=== PATIENT | male | born 1960 | race African-American/Black ===

== ENCOUNTER 2023-05-11 20:36 | Inpatient (IN) | payer OTHER ==
[2023-05-11] MEDS ORDERED: LACTATED RINGERS SOLUTION 1000 ML INFUS.BAG IV ONE (22:26)
[2023-05-11 23:11] LABS: CHLORIDE 107 mmol/L (98-107); POTASSIUM 4.1 mmol/L (3.5-5.1); SODIUM 142 mmol/L (136-145)
[2023-05-11 23:13] LABS: ANION GAP 10 MMOL/L (8-16); BLOOD UREA NITROGEN 14.5 mg/dL (7-18); CALCIUM 9.7 mg/dL (8.5-10.1); CO2 24 mmol/L (21-32); GLUCOSE,RANDOM 99 mg/dL (74-106)
[2023-05-11 23:16] LABS: CREATININE 1.6 mg/dL (0.55-1.3); SGOT/AST 43 U/L (15-37); SGPT/ALT 44 U/L (13-61)
[2023-05-11 23:18] LABS: TOT PROT 8.2 g/dl (6.4-8.2)
[2023-05-11 23:19] LABS: ALK PHOS 102 U/L (45-117)
[2023-05-12 01:33] LABS: BASO % 0.4 % (0-2.0); EOS % 0.6 % (0-4.5); HEMATOCRIT 41.6 % (35.4-49); HEMOGLOBIN 13.9 GM/dL (11.7-16.9); LYMPH % 18.1 % (8-40); MCHC 33.3 g/dl (32.0-35.9); MEAN PLT VOLUME 6.5 fl (7.5-11.1); MONO % 4.8 % (3.8-10.2); NEUT % 76.1 % (42.8-82.8); PLATELET COUNT 291 10^3/uL (134-434); RBC 4.79 M/mm3 (4.00-5.60); RDW 14.1 % (11.9-15.9); WHITE BLOOD COUNT 8.5 K/mm3 (4.0-10.0)
[2023-05-12 02:14] VITALS: TEMP 98.1; BMI 27.3
[2023-05-12] MEDS ORDERED: SODIUM CHLORIDE 1,000 ML IV SCH (04:15)
[2023-05-12] MEDS ORDERED: chlordiazePOXIDE HCL 25 MG CAPSULE PO PRN (05:22)
[2023-05-12] MEDS: INSULIN SLIDING SCALE (NOVOLOG) 1 VIAL SQ SCH ×2 (06:28→12:00)
[2023-05-12 06:36] VITALS: RESP 18
[2023-05-12 08:03] LABS: POTASSIUM 3.4 mmol/L (3.5-5.1)
[2023-05-12 08:05] LABS: BASO % 0.6 % (0-2.0); EOS % 1.3 % (0-4.5); HEMATOCRIT 38.6 % (35.4-49); HEMOGLOBIN 12.7 GM/dL (11.7-16.9); LYMPH % 30.1 % (8-40); MCH 28.8 pg (25.7-33.7); MEAN CELL VOLUME 87.3 fl (80-96); MEAN PLT VOLUME 6.9 fl (7.5-11.1); MONO % 12.3 % (3.8-10.2); NEUT % 55.7 % (42.8-82.8); PLATELET COUNT 279 10^3/uL (134-434); RBC 4.42 M/mm3 (4.00-5.60); RDW 14.1 % (11.9-15.9); WHITE BLOOD COUNT 5.6 K/mm3 (4.0-10.0)
[2023-05-12 08:06] LABS: CALCIUM 8.9 mg/dL (8.5-10.1)
[2023-05-12 08:07] LABS: MAGNESIUM 2.4 mg/dL (1.8-2.4)
[2023-05-12 08:08] LABS: ALBUMIN 3.2 g/dl (3.4-5.0); BLOOD UREA NITROGEN 14.3 mg/dL (7-18)
[2023-05-12 08:11] LABS: CREATININE 1.2 mg/dL (0.55-1.3); TOT PROT 6.7 g/dl (6.4-8.2)
[2023-05-12 08:13] LABS: BILIRUBIN,TOTAL 0.7 mg/dL (0.2-1)
[2023-05-12 09:03] VITALS: BP 137/75; PULSE 77
[2023-05-12] MEDS ORDERED: ENOXAPARIN NA (PORCINE) 40 MG/0.4 ML DISP.SYRIN SQ SCH (10:00)
[2023-05-12] MEDS ORDERED: chlordiazePOXIDE HCL 25 MG CAPSULE PO SCH (11:00)
[2023-05-14] MEDS ORDERED: chlordiazePOXIDE HCL 25 MG CAPSULE PO SCH (05:00)
[2023-05-15] MEDS ORDERED: chlordiazePOXIDE HCL 10 MG CAPSULE PO PRN
[2023-05-15] MEDS ORDERED: chlordiazePOXIDE HCL 10 MG CAPSULE PO SCH (05:00)
[2023-05-16] MEDS ORDERED: chlordiazePOXIDE HCL 10 MG CAPSULE PO SCH (05:00)
[2023-05-17] MEDS ORDERED: chlordiazePOXIDE HCL 10 MG CAPSULE PO ONE (05:00)
== END 2023-05-12 13:16 | disposition home or self-care (01) | DRG 469 ==
LOC: JER 20:36 → JERBED 23:54 → J4S 05-12 01:42
PROVIDERS: ADMIT Internal Medicine; ATTEND Internal Medicine
DX: N17.9 Acute kidney failure, unspecified (principal); I10 Essential (primary) hypertension; E11.9 Type 2 diabetes mellitus without complications; E86.0 Dehydration; I95.1 Orthostatic hypotension; F41.9 Anxiety disorder, unspecified
CPT/HCPCS: 36415; 70450-TC; 71045-TC-FY; 80053; 80061; 80307; 82962; 83036; 83735; 84100; 84484; 85025; 93005; 93010; 97116-GP; 97162-GP; 99285-25